=== PATIENT | female | born 1935 | race African-American/Black ===

== ENCOUNTER 2018-11-17 02:31 | Inpatient (IN) | payer OTHER, MEDICAID ==
[~2018-11-17] VITALS: Ht 160 cm; Wt 69.9 kg
[2018-11-17] MEDS ORDERED: ONDANSETRON HCL 4MG/2ML INJ IV STA (03:20)
[2018-11-17] MEDS ORDERED: NITROGLYCERIN OINT 1GM/INCH UDPKT TD ONE ×2 (03:30→03:44)
[2018-11-17] MEDS ORDERED: FUROSEMIDE 40MG/4ML VIAL IV ONE (03:30)
[2018-11-17 03:43] LABS: HEMATOCRIT. 30.3 % (36.0-48.0); HEMOGLOBIN. 9.6 g/dL (12.0-16.0); MEAN CORPUSCULAR HEMOGLOBIN 23.4 pg (28.0-32.0); MEAN CORPUSCULAR VOLUME 73.6 fL (81.0-99.0); MEAN PLATELET VOLUME 8.8 fl (7.4-10.4); PLATELET 266 x1000/uL (130-400); RED BLOOD CELL COUNT 4.11 mill/uL (4.2-5.4); RED CELL DISTRIBUTION WIDTH 16.7 % (11.6-14.6)
[2018-11-17 03:46] LABS: CHLORIDE 104 mEq/L (98-107)
[2018-11-17 05:07] LABS: PLATELET ESTIMATE NORMAL
[2018-11-17] MEDS ORDERED: GUAIFENESIN 200MG/10ML SUGAR FREE UDC PO PRN (06:45)
[2018-11-17] MEDS ORDERED: NITROGLYCERIN 0.4MG TABLET SL SL PRN (06:45)
[2018-11-17] MEDS ORDERED: ZOLPIDEM TARTRATE 5MG TABLET PO PRN (06:45)
[2018-11-17] MEDS ORDERED: ACETAMINOPHEN 325MG TABLET PO PRN (06:45)
[2018-11-17] MEDS ORDERED: MAGNESIUM/ALUMINUM HYDROXIDE/SIMETHICONE 30ML UDC PO PRN (06:45)
[2018-11-17] MEDS ORDERED: DOCUSATE SODIUM 100MG CAPSULE PO PRN (06:45)
[2018-11-17] MEDS ORDERED: IPRATROPIUM/ALBUTEROL 0.5-3(2.5)MG/3ML NEB INH PRN (06:45)
[2018-11-17] MEDS ORDERED: DEXTROSE 50% WATER 50ML SYRINGE IV PRN (06:45)
[2018-11-17] MEDS ORDERED: TRAMADOL 50MG TABLET PO PRN (06:45)
[2018-11-17] MEDS ORDERED: ONDANSETRON HCL 4MG/2ML INJ IV PRN (06:45)
[2018-11-17] MEDS: ASPIRIN 325MG EC TABLET PO SCH (09:28)
[2018-11-17] MEDS: ENOXAPARIN 30MG/0.3ML SYR SUBCUT SCH (09:28)
[2018-11-17] MEDS: FUROSEMIDE 40MG/4ML VIAL IVP SCH ×2 (09:29→20:20)
[2018-11-17] MEDS: SPIRONOLACTONE 25MG TABLET PO SCH ×2 (09:29→20:20)
[2018-11-17] MEDS: CLONIDINE 0.1MG TABLET PO PRN ×2 (09:29→20:20)
[2018-11-17] MEDS: FAMOTIDINE 20MG TABLET PO SCH (09:29)
[2018-11-17] MEDS: INSULIN LISPRO 100 UNITS/ML SUBCUT SCH ×4 (09:30→20:20)
[2018-11-17] MEDS: BLOOD SUGAR DIAGNOSTIC STRIP TEST SCH ×3 (09:31→20:10)
[2018-11-17 09:41] VITALS: BP 185/89
[2018-11-17 10:04] LABS: VITAMIN B12 SERUM 1682 pg/mL (211-911)
[2018-11-17 10:34] LABS: FOLIC ACID (FOLATE) SERUM > 20.00 ng/mL (>5.38)
[2018-11-17] MEDS ORDERED: ACET-2708 PO (10:40)
[2018-11-17] MEDS ORDERED: CYAN-33 PO (10:40)
[2018-11-17] MEDS ORDERED: FURO40TA5 PO (10:40)
[2018-11-17] MEDS ORDERED: MIRT15TA6 PO (10:40)
[2018-11-17] MEDS ORDERED: CALC0.253 PO (10:40)
[2018-11-17] MEDS ORDERED: ALLO100T PO (10:40)
[2018-11-17] MEDS ORDERED: PYRI100T2 PO (10:40)
[2018-11-17] MEDS ORDERED: MULT-1146 PO (10:40)
[2018-11-17] MEDS ORDERED: NIFE60TA78 PO (10:40)
[2018-11-17] MEDS ORDERED: ALBU05 NEB (10:40)
[2018-11-17] MEDS ORDERED: XALAO EACHEYE (10:40)
[2018-11-17] MEDS ORDERED: LABE200T28 PO (10:40)
[2018-11-17] MEDS ORDERED: BUDE6HFA INH (10:40)
[2018-11-17] MEDS ORDERED: SIMV40TA5 PO (10:40)
[2018-11-17 10:49] LABS: *AMPHETAMINES SCREEN URINE NEGATIVE (NEGATIVE); *BARBITURATES SCREEN URINE NEGATIVE (NEGATIVE); *BENZODIAZEPINES SCREEN URINE NEGATIVE (NEGATIVE)
[2018-11-17 10:50] LABS: *COCAINE SCREEN URINE NEGATIVE (NEGATIVE); CANNABINOID URINE SCREEN NEGATIVE (NEGATIVE); METHADONE URINE SCREEN NEGATIVE (NEGATIVE); OPIATES URINE SCREEN NEGATIVE (NEGATIVE); PHENCYCLIDINE URINE SCREEN NEGATIVE (NEGATIVE)
[2018-11-17] MEDS: INSULIN GLARGINE UD 100 UNITS/ML SYR SUBCUT SCH (10:57)
[2018-11-17 12:00] VITALS: BP 124/70
[2018-11-17 15:31] LABS: CREATINE KINASE MB FRACTION 2.4 ng/mL (0.5-3.6)
[2018-11-17 16:00] VITALS: BP 171/71
[2018-11-17] MEDS: CARVEDILOL 3.125 MG TABLET PO SCH (17:18)
[2018-11-17] MEDS: AMLODIPINE 10MG TABLET PO SCH (17:59)
[2018-11-17 20:00] VITALS: BP 176/88
[2018-11-17 23:20] LABS: CREATINE KINASE MB FRACTION 1.9 ng/mL (0.5-3.6)
[2018-11-18] VITALS: BP 153/66
[2018-11-18 04:00] VITALS: BP 137/62
[2018-11-18] MEDS: CARVEDILOL 3.125 MG TABLET PO SCH ×2 (05:42→21:22)
[2018-11-18] MEDS: BLOOD SUGAR DIAGNOSTIC STRIP TEST SCH ×4 (05:49→21:23)
[2018-11-18] MEDS: INSULIN LISPRO 100 UNITS/ML SUBCUT SCH ×4 (06:20→21:24)
[2018-11-18 08:00] VITALS: BP 106/67
[2018-11-18] MEDS: ENOXAPARIN 30MG/0.3ML SYR SUBCUT SCH (08:55)
[2018-11-18] MEDS: FUROSEMIDE 40MG/4ML VIAL IVP SCH ×2 (08:55→21:23)
[2018-11-18] MEDS: AMLODIPINE 10MG TABLET PO SCH (08:56)
[2018-11-18] MEDS: ASPIRIN 325MG EC TABLET PO SCH (08:56)
[2018-11-18] MEDS: SPIRONOLACTONE 25MG TABLET PO SCH ×2 (08:56→21:23)
[2018-11-18] MEDS: FAMOTIDINE 20MG TABLET PO SCH (08:56)
[2018-11-18] MEDS: INSULIN GLARGINE UD 100 UNITS/ML SYR SUBCUT SCH (11:03)
[2018-11-18 12:00] VITALS: BP 166/72
[2018-11-18 16:00] VITALS: BP 140/61
[2018-11-18 20:00] VITALS: BP 184/68
[2018-11-18 20:07] LABS: BASOPHILS % 0.4 % (0.0-2.0); HEMATOCRIT. 28.6 % (36.0-48.0); HEMOGLOBIN. 9.1 g/dL (12.0-16.0); LYMPHOCYTES % 15.1 % (20.0-50.0); MEAN CORPUSCULAR HEMOGLOBIN 23.5 pg (28.0-32.0); MEAN PLATELET VOLUME 9.1 fl (7.4-10.4); MONOCYTES % 12.7 % (2.0-8.0); NEUTROPHILS % 67.8 % (40.0-76.0); PLATELET 259 x1000/uL (130-400); RED BLOOD CELL COUNT 3.87 mill/uL (4.2-5.4); RED CELL DISTRIBUTION WIDTH 16.6 % (11.6-14.6)
[2018-11-19] VITALS: BP 149/59
[2018-11-19 04:00] VITALS: BP 159/72
[2018-11-19] MEDS: CARVEDILOL 3.125 MG TABLET PO SCH ×2 (05:54→17:05)
[2018-11-19] MEDS: BLOOD SUGAR DIAGNOSTIC STRIP TEST SCH ×4 (06:24→20:30)
[2018-11-19] MEDS: INSULIN LISPRO 100 UNITS/ML SUBCUT SCH ×4 (06:24→21:42)
[2018-11-19 08:31] VITALS: BP 150/54
[2018-11-19] MEDS: SPIRONOLACTONE 25MG TABLET PO SCH ×2 (10:02→21:40)
[2018-11-19] MEDS: AMLODIPINE 10MG TABLET PO SCH (10:02)
[2018-11-19] MEDS: FAMOTIDINE 20MG TABLET PO SCH (10:03)
[2018-11-19] MEDS: FUROSEMIDE 40MG/4ML VIAL IVP SCH ×2 (10:05→21:40)
[2018-11-19] MEDS: ASPIRIN 325MG EC TABLET PO SCH (10:11)
[2018-11-19] MEDS: ENOXAPARIN 30MG/0.3ML SYR SUBCUT SCH (10:12)
[2018-11-19 11:53] VITALS: BP 164/57
[2018-11-19] MEDS: INSULIN GLARGINE UD 100 UNITS/ML SYR SUBCUT SCH (12:48)
[2018-11-19 15:20] VITALS: BP 141/54
[2018-11-19] MEDS: FERROUS SULFATE 325MG TABLET PO SCH (17:22)
[2018-11-19 20:00] VITALS: BP 134/62
[2018-11-20] VITALS: BP 154/64
[2018-11-20 04:00] VITALS: BP 184/71
[2018-11-20] MEDS: CARVEDILOL 3.125 MG TABLET PO SCH (05:23)
[2018-11-20] MEDS: INSULIN LISPRO 100 UNITS/ML SUBCUT SCH ×4 (06:15→20:46)
[2018-11-20] MEDS: BLOOD SUGAR DIAGNOSTIC STRIP TEST SCH ×4 (06:15→20:46)
[2018-11-20 08:00] VITALS: BP 184/64
[2018-11-20] MEDS: FAMOTIDINE 20MG TABLET PO SCH (08:57)
[2018-11-20] MEDS: ENOXAPARIN 30MG/0.3ML SYR SUBCUT SCH (08:57)
[2018-11-20] MEDS: FERROUS SULFATE 325MG TABLET PO SCH (08:58)
[2018-11-20] MEDS: AMLODIPINE 10MG TABLET PO SCH (08:58)
[2018-11-20] MEDS: ASPIRIN 81MG EC TABLET PO SCH (08:58)
[2018-11-20] MEDS: SPIRONOLACTONE 25MG TABLET PO SCH ×2 (08:58→20:46)
[2018-11-20] MEDS: FUROSEMIDE 40MG/4ML VIAL IVP SCH ×2 (08:58→20:46)
[2018-11-20] MEDS: INSULIN GLARGINE UD 100 UNITS/ML SYR SUBCUT SCH (09:52)
[2018-11-20 12:00] VITALS: BP 153/63
[2018-11-20] MEDS: CLONIDINE 0.1MG TABLET PO SCH ×3 (12:32→21:04)
[2018-11-20 16:00] VITALS: BP 143/57
[2018-11-20] MEDS: CARVEDILOL 6.25 MG TABLET PO SCH (19:50)
[2018-11-20 20:00] VITALS: BP 150/61
[2018-11-20] MEDS ORDERED: ATORVASTATIN CALCIUM 10MG TABLET PO SCH (21:00)
[2018-11-21] VITALS: BP 131/48
[2018-11-21 04:00] VITALS: BP 168/64
[2018-11-21] MEDS: CARVEDILOL 6.25 MG TABLET PO SCH ×2 (06:15→18:46)
[2018-11-21] MEDS: CLONIDINE 0.1MG TABLET PO SCH ×2 (06:15→14:33)
[2018-11-21] MEDS: BLOOD SUGAR DIAGNOSTIC STRIP TEST SCH ×3 (06:15→17:43)
[2018-11-21] MEDS: INSULIN LISPRO 100 UNITS/ML SUBCUT SCH ×3 (06:19→17:15)
[2018-11-21 06:55] LABS: BASOPHILS % 0.8 % (0.0-2.0); EOSINOPHILS % 5.3 % (0.0-5.0); HEMATOCRIT. 28.2 % (36.0-48.0); HEMOGLOBIN. 8.9 g/dL (12.0-16.0); LYMPHOCYTES % 22.8 % (20.0-50.0); MEAN CORPUSCULAR HEMOGLOBIN 23.3 pg (28.0-32.0); MEAN PLATELET VOLUME 8.8 fl (7.4-10.4); MONOCYTES % 14.2 % (2.0-8.0); NEUTROPHILS % 56.9 % (40.0-76.0); PLATELET 277 x1000/uL (130-400); RED BLOOD CELL COUNT 3.81 mill/uL (4.2-5.4); RED CELL DISTRIBUTION WIDTH 16.4 % (11.6-14.6)
[2018-11-21 08:00] VITALS: BP 125/86
[2018-11-21] MEDS: FUROSEMIDE 40MG/4ML VIAL IVP SCH (09:46)
[2018-11-21] MEDS: FERROUS SULFATE 325MG TABLET PO SCH (09:47)
[2018-11-21] MEDS: FAMOTIDINE 20MG TABLET PO SCH (09:47)
[2018-11-21] MEDS: AMLODIPINE 10MG TABLET PO SCH (09:47)
[2018-11-21] MEDS: ASPIRIN 81MG EC TABLET PO SCH (09:47)
[2018-11-21] MEDS: SPIRONOLACTONE 25MG TABLET PO SCH (09:47)
[2018-11-21] MEDS: ENOXAPARIN 30MG/0.3ML SYR SUBCUT SCH (09:48)
[2018-11-21] MEDS: INSULIN GLARGINE UD 100 UNITS/ML SYR SUBCUT SCH (09:56)
[2018-11-21 10:28] LABS: CHLORIDE 99 mEq/L (98-107)
[2018-11-21 11:46] LABS: BG BASE EXCESS 0.4 mmol/L (-2.0-2.0); BG CARBOXYHEMOGLOBIN 0.2 % (0.5-1.5); BG DEOXYHEMOGLOBIN 6.2 % (0.0-5.0); BG FRACTION INSPIRED OXYGEN 21; BG HCO3 ACT 25.1 mmol/L (22.0-26.0); BG METHEMOGLOBIN 0.2 % (0.0-1.5); BG OXYGEN SATURATION 93.8 % (92.0-98.5); BG OXYHEMOGLOBIN 93.4 % (94.0-97.0); BG PCO2 40.7 mmHg (35.0-45.0); BG PH 7.408 (7.350-7.450); BG SAMPLE SITE RIGHT BRACHIAL; BG TOTAL HEMOGLOBIN 9.7 g/dL (12.0-18.0); BG VENT MODE ROOM AIR
[2018-11-21 12:00] VITALS: BP 156/53
[2018-11-21 15:49] VITALS: BP 156/53
[2018-11-21 16:00] VITALS: BP 126/52
[2018-11-21] MEDS ORDERED: FUROSEMIDE 40MG TABLET PO SCH (21:00)
== END 2018-11-21 19:30 | disposition home or self-care (01) | DRG 291 ==
LOC: ER 02:44 → 6WST 05:06 → EDBEDREQ 05:07 → EDBEDREQTM 05:07 → SUPCPDRO 06:32 → ENRESERV 07:39 → 5WST 12:06
PROVIDERS: ADMIT Internal Medicine; ATTEND Internal Medicine
DX: I13.0 Hypertensive heart and chronic kidney disease with heart failure and stage 1 through stage 4 chronic kidney disease, or unspecified chronic kidney disease (principal); I50.33 Acute on chronic diastolic (congestive) heart failure; J96.00 Acute respiratory failure, unspecified whether with hypoxia or hypercapnia; N17.0 Acute kidney failure with tubular necrosis; E11.22 Type 2 diabetes mellitus with diabetic chronic kidney disease; I08.3 Combined rheumatic disorders of mitral, aortic and tricuspid valves; N18.9 Chronic kidney disease, unspecified; N26.1 Atrophy of kidney (terminal); E11.65 Type 2 diabetes mellitus with hyperglycemia; I27.20 Pulmonary hypertension, unspecified; E78.5 Hyperlipidemia, unspecified; D63.8 Anemia in other chronic diseases classified elsewhere; J44.9 Chronic obstructive pulmonary disease, unspecified; Z79.4 Long term (current) use of insulin; Z79.82 Long term (current) use of aspirin; Z79.899 Other long term (current) drug therapy; Z90.49 Acquired absence of other specified parts of digestive tract
CPT/HCPCS: 36415; 36600; 71045; 76770; 80048; 80061; 80305; 82375; 82550; 82553; 82607; 82746; 82805; 82962; 83036; 83540; 83550; 83880; 84484; 93005; 93306; 93970; 94640; 99285; A6261; J1650; J1815; J1940; J2405; J7620

== ENCOUNTER 2018-12-13 15:50 | Emergency (ER) | payer OTHER, MEDICAID ==
[~2018-12-13] VITALS: Ht 165.1 cm; Wt 70.0 kg
[~2018-12-13 15:50] MED LIST: ACET-2708 PO; ALBU05 NEB; ALLO100T PO; BUDE6HFA INH; CALC0.253 PO; CYAN-33 PO; FURO40TA5 PO; LABE200T28 PO; MIRT15TA6 PO; MULT-1146 PO; NIFE60TA78 PO; PYRI100T2 PO; SIMV40TA5 PO; XALAO EACHEYE
[2018-12-13 16:40] LABS: BASOPHILS % 0.5 % (0.0-2.0); HEMATOCRIT. 37.3 % (36.0-48.0); LYMPHOCYTES % 15.5 % (20.0-50.0); MEAN CORPUSCULAR HEMOGLOBIN 23.2 pg (28.0-32.0); MEAN CORPUSCULAR VOLUME 72.5 fL (81.0-99.0); MEAN PLATELET VOLUME 9.2 fl (7.4-10.4); MONOCYTES % 8.6 % (2.0-8.0); NEUTROPHILS % 73.4 % (40.0-76.0); PLATELET 237 x1000/uL (130-400); RED BLOOD CELL COUNT 5.15 mill/uL (4.2-5.4); RED CELL DISTRIBUTION WIDTH 17.1 % (11.6-14.6)
[2018-12-13 16:44] LABS: CHLORIDE 103 mEq/L (98-107)
[2018-12-13] MEDS ORDERED: ONDANSETRON HCL 4MG/2ML INJ IV STA (17:39)
[2018-12-13] MEDS ORDERED: FAMOTIDINE 20MG/2ML VIAL IV STA (17:39)
[2018-12-13] MEDS ORDERED: MAGNESIUM/ALUMINUM HYDROXIDE/SIMETHICONE 30ML UDC PO STA (17:39)
[2018-12-13 23:58] VITALS: BP 150/52
== END 2018-12-14 00:09 | disposition short-term general hospital (02) ==
LOC: ER 15:50
DX: R10.13 Epigastric pain (principal); R07.9 Chest pain, unspecified; R11.2 Nausea with vomiting, unspecified; E11.65 Type 2 diabetes mellitus with hyperglycemia; I51.9 Heart disease, unspecified; R79.89 Other specified abnormal findings of blood chemistry; J44.9 Chronic obstructive pulmonary disease, unspecified; Z90.49 Acquired absence of other specified parts of digestive tract
CPT/HCPCS: 36415; 71045; 80053; 82962; 83690; 83880; 84484; 85025; 93005; 96374; 96375; 99285; J2405; J3490

== ENCOUNTER 2019-04-11 20:17 | Emergency (ER) | payer MEDICAID, OTHER ==
[~2019-04-11] VITALS: Ht 160 cm; Wt 80.0 kg
[2019-04-11] MEDS ORDERED: ONDANSETRON HCL 4MG/2ML INJ IV STA (20:45)
[2019-04-11 21:12] LABS: CHLORIDE 101 mEq/L (98-107)
[2019-04-11 21:16] LABS: HEMATOCRIT. 28.1 % (36.0-48.0); HEMOGLOBIN. 8.8 g/dL (12.0-16.0); MEAN CORPUSCULAR HEMOGLOBIN 23.4 pg (28.0-32.0); MEAN CORPUSCULAR VOLUME 74.9 fL (81.0-99.0); MEAN PLATELET VOLUME 9.8 fl (7.4-10.4); PLATELET 216 x1000/uL (130-400); RED BLOOD CELL COUNT 3.75 mill/uL (4.2-5.4); RED CELL DISTRIBUTION WIDTH 16.7 % (11.6-14.6)
[2019-04-11 21:40] LABS: PLATELET ESTIMATE NORMAL
[2019-04-11] MEDS ORDERED: LEVOFLOXACIN 500MG PREMIX 100 ML IV ONE (21:45)
[2019-04-12 00:07] VITALS: BP 142/62
== END 2019-04-12 01:02 | disposition home or self-care (01) ==
LOC: ER 20:17
DX: I50.9 Heart failure, unspecified (principal); J18.9 Pneumonia, unspecified organism; J45.909 Unspecified asthma, uncomplicated; E11.9 Type 2 diabetes mellitus without complications; I25.2 Old myocardial infarction; Z90.710 Acquired absence of both cervix and uterus
CPT/HCPCS: 36415; 71045; 80053; 83880; 84484; 85025; 87040; 93005; 96365; 96375; 99284; J1956; J2405